=== PATIENT | female | born 1930 | race Caucasian/White ===

== ENCOUNTER 2016-07-30 08:00 | Outpatient (CLI) | payer MEDICARE, OTHER | END 2016-07-30 08:01 | disposition home or self-care (01) | DX: I10 Essential (primary) hypertension (principal); E78.5 Hyperlipidemia, unspecified ==

== ENCOUNTER 2017-04-12 08:30 | Outpatient (CLI) | payer MEDICARE, OTHER ==
[2017-04-12] MEDS ORDERED: IOPAMIDOL-300 50 ML VIAL ONE (11:20)
[2017-04-12] MEDS ORDERED: IOPAMIDOL-300 100 ML VIAL ONE (11:20)
--- NOTE | 2017-04-12 14:25 | Nuclear Medicine Report ---
EXAM: GASTRIC EMPTYING STUDY EXAM DATE: 04/12/2017 09:11 AM. CLINICAL HISTORY: GENERALIZED ABDOMINAL PAIN. COMPARISON: None. TECHNIQUE: A standard meal was radiolabeled with 1.0 mCi Tc-99m sulfur colloid according to protocol. Following the p.o. administration of this meal, the patient underwent multiple static images over th e abdomen from the anterior and posterior projections, at approximately 0 and 1 hours following the ingestion of the meal. Region of interest analysis was employed, and percent emptied/percent remainin g of the meal was calculated using both the geometric mean and decay corrections. FINDINGS: Calculations demonstrate: TIME (hours) Percent remaining. Normal values for percent remaining. 1 hour: 5.6% (30-90%) 2 hours: N/A (0-60%) 4 hours: N/A (0-10%) IMPRESSION: 1. Findings suggest abnormally rapid gastric emptying. [facility] Referring Provider Line: [phone] SITE ID: [id number]
== END 2017-04-12 08:31 | disposition home or self-care (01) ==
LOC: DI 08:30
PROVIDERS: ATTEND Internal Medicine Gastroenterology
DX: R10.84 Generalized abdominal pain (principal)
CPT/HCPCS: 78265; A9541

== ENCOUNTER 2017-04-15 08:17 | Outpatient (CLI) | payer MEDICARE, OTHER ==
[2017-04-15] MEDS ORDERED: BARIUM SULFATE 135 ML BOTTLE PO ONE (12:04)
[2017-04-15] MEDS ORDERED: BARIUM SULFATE 176 GM BOTTLE PO ONE (12:04)
[2017-04-15] MEDS ORDERED: SIMETHICONE/SOD BICARB/CIT AC 1 EACH PACKET PO ONE (12:04)
--- NOTE | 2017-04-16 09:24 | Ultrasound Report ---
COMPLETE ABDOMINAL ULTRASOUND: 04/15/2017 CLINICAL INDICATION: Abdominal pain. TECHNIQUE: Real-time scanning was performed with risk control field representative static images obtained. FINDINGS: The liver measures 13.8 cm. There is focal fatty infiltration adjacent to the falciform ligament. No suspicious hepatic lesion or intrahepatic biliary dilation is seen. The common bile duct measures 4 mm. The gallbladder is normal. The pancreas is unremarkable. The kidneys are normal, with the right measuring 8.9 cm and the left measuring 10.4 cm. The spleen measures 7.5 cm, and demonstrates old calcified granulomas. The abdominal aorta is normal in caliber. The inferior vena cava is unremarkable. No free fluid is present. IMPRESSION: FOCAL FATTY INFILTRATION ADJACENT TO THE FALCIFORM LIGAMENT. MTDD
--- NOTE | 2017-04-16 10:46 | XRAY Report ---
UPPER GASTROINTESTINAL WITH SMALL BOWEL FOLLOWTHROUGH DATE: 04/15/2017. INDICATION: Generalized abdominal pain. Single and double contrast upper GI was performed, followed by small bowel followthrough. Initial automatic gluing machine operator view of the abdomen demonstrates a normal bowel gas pattern. The distal esophagus is normal in caliber. No hiatal hernia is identified. The stomach demonstrates a normal fold pattern. No gastric ulceration, mass lesion, or stricturing is identified. The duodenal cap distends normally. The duodenal C -loop is unremarkable. Contrast passes freely through jejunal and ileal loops with contrast seen in the colon at 30 minutes. No abnormal dilatation or separation of small bowel loops is seen. No fixed intraluminal filling defect is identified. The terminal ileum is unremarkable. IMPRESSION: Normal upper gastrointestinal with small bowel followthrough. FLUOROSCOPY TIME: 4 minutes 2 seconds; [address] [facility]
== END 2017-04-15 08:18 | disposition home or self-care (01) ==
LOC: DI 08:17
PROVIDERS: ATTEND Internal Medicine Gastroenterology
DX: R10.84 Generalized abdominal pain (principal); K76.0 Fatty (change of) liver, not elsewhere classified
CPT/HCPCS: 74249; 76700; A9270

== ENCOUNTER 2017-04-23 09:56 | Outpatient (CLI) | payer MEDICARE, OTHER ==
[~2017-04-23 09:56] MED LIST: IOPAMIDOL-300 100 ML VIAL ONE; IOPAMIDOL-300 50 ML VIAL ONE
[2017-04-23] MEDS ORDERED: IOPAMIDOL-300 50 ML VIAL ONE (10:38)
[2017-04-23] MEDS ORDERED: IOPAMIDOL-300 100 ML VIAL ONE (10:38)
[2017-04-23] MEDS ORDERED: IOPAMIDOL-300 50 ML VIAL PO ONE (13:10)
[2017-04-23] MEDS ORDERED: IOPAMIDOL-300 100 ML VIAL IVP ONE (13:10)
--- NOTE | 2017-04-23 16:10 | CT Report ---
EXAM: CT ABDOMEN AND PELVIS EXAM DATE: 04/23/2017 12:14 PM. CLINICAL HISTORY: Abdominal pain. COMPARISONS: Abdomen pelvis CT 07/06/2016 (axial images only). TECHNIQUE: Routine helical CT imaging was performed through the abdomen and pelvis. IV contrast: Isov ue 300 100 mL. Enteric contrast: Yes. Reconstructions: Coronal and sagittal. In accordance with CT protocol optimization, one or more of the following dose reduction techniques w ere utilized for this exam: automated exposure control, adjustment of mA and/or KV based on patient s ize, or use of iterative reconstructive technique. FINDINGS: Lung Bases: Unremarkable. Liver: No masses. Focal fatty infiltration adjacent to the falciform ligament is less prominent. Gallbladder/Bile Ducts: Unremarkable. Spleen: Normal. Pancreas: Normal. Adrenal Glands: Normal. Kidneys: Normal. No masses or hydronephrosis. Peritoneal Cavity/Bowel: Substantial colonic diverticulosis appears progressed but there is no CT len dence of diverticulitis. No free fluid, free air or adenopathy. No masses or acute inflammatory proce ss. The appendix is not clearly identified but there is no evidence of appendicitis. Pelvic Organs: No definite bladder stone or mass. The uterus is either absent or very atrophic. Vasculature: Extensive atherosclerotic calcifications, without tyson aneurysm. Bones: Substantial levoconvexity rotoscoliosis centered at the L1-L2 level appears mildly increased. There is degenerative disease of the spine. Grade 1 anterolisthesis at L4-L5 appears to be due to deg enerative facet disease. (No prior lateral images for comparison). Other: None. IMPRESSION: 1. No definite acute abnormality of the abdomen or pelvis. 2. Substantial colonic diverticulosis without evidence of diverticulitis. 3. Additional chronic findings, as above. [facility] Referring Provider Line: [phone] SITE ID: [id number]
== END 2017-04-23 09:57 | disposition home or self-care (01) ==
LOC: DI 09:56
PROVIDERS: ATTEND Internal Medicine Gastroenterology
DX: R10.84 Generalized abdominal pain (principal); K57.30 Diverticulosis of large intestine without perforation or abscess without bleeding
CPT/HCPCS: 74177; Q9967

== ENCOUNTER 2017-06-11 16:07 | Outpatient (CLI) | payer MEDICARE, OTHER | END 2017-06-11 16:08 | disposition critical access hospital (66) | LOC: EMS 16:07 | PROVIDERS: ATTEND Surgery | DX: R42 Dizziness and giddiness (principal); R51 Headache | CPT/HCPCS: A0425; A0429 ==

== ENCOUNTER 2017-06-11 16:29 | Observation (INO) | payer MEDICARE, OTHER ==
--- NOTE | 2017-06-11 17:39 | ED Physician Documentation ---
PD HPI FOCAL NEURO - Stated complaint Stated Complaint: VERTIGO - Chief complaint Chief Complaint: Neuro - History obtained from History obtained from: Patient, Family - History of Present Illness Timing - onset: How many minutes ago (50) Timing - duration: Minutes (50) Timing - details: Abrupt onset (She was standing in line at a store and noted onset of left posterior neck pain followed with acute vertigo, with nausea and vomited. Vertigo worse with head movement, but persisted even without movement. It was not precipitated by bending, turning, injury. No prior similar.), Now resolved (improving after about 30 minutes, and was about gone by time of ED arrival, slight vertigo only. No visual change. No trouble talking.) Severity of deficit: Moderate (significant enough to feel off balance.) Weakness: No: Face, Arm, Leg Numbness: No: Face, Arm, Leg Review of Systems Constitutional: denies: Fever, Chills, Myalgias Ears: denies: Loss of hearing, Ear pain, Tinnitus/ringing Nose: denies: Rhinorrhea / runny nose, Congestion Throat: denies: Sore throat Cardiac: denies: Chest pain / pressure, Palpitations Respiratory: denies: Dyspnea, Cough GI: denies: Abdominal Pain, Nausea, Vomiting, Diarrhea : denies: Dysuria, Frequency Skin: denies: Rash, Lesions Neurologic: denies: Focal weakness, Numbness, Difficulty speaking, Near syncope PD PAST MEDICAL HISTORY - Past Medical History Past Medical History: Yes Cardiovascular: Hypertension, High cholesterol, Peripheral Vascular Disease, Pulmonary embolism Respiratory: None Neuro: TIA, Headache/migraine, Other (right carotid CEA. 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 - Present Medications Home Medications: Ambulatory Orders Medication Instructions Recorded Confirmed Latanoprost 0.005% Ophth Drops 1 drops OPTH QPM 06/30/13 01/19/16 [Xalatan] oxyCODONE [Roxicodone] 5 mg PO DAILY PRN 06/30/13 01/20/16 Dorzolamide 2% Ophth Drops 2 drops LEFTEYE BID 11/29/15 01/19/16 [Trusopt 2% Ophth Drops] Omeprazole [PriLOSEC] 20 mg ORAL BID 11/29/15 01/20/16 amLODIPine [Norvasc] 5 mg ORAL DAILY 11/29/15 01/19/16 Enoxaparin [Lovenox] 60 mg SQ DAILY 01/19/16 01/19/16 - Allergies Allergies/Adverse Reactions: Allergies Allergy/AdvReac Type Severity Reaction Status Date / Time codeine AdvReac Mild Unknown Verified 07/01/13 07:45 - Social History Does the pt smoke?: No Smoking Status: Never smoker Does the pt have substance abuse?: No PD ED PE NORMAL - Vitals Vital signs reviewed: Yes - General General: Alert and oriented X 3, No acute distress, Well developed/nourished - HEENT HEENT: Atraumatic, PERRL (without nystagmus), EOMI, Ears normal, Pharynx benign - Neck Neck: Supple, no meningeal sign, No adenopathy, No JVD, No bruit - Cardiac Cardiac: RRR, No murmur - Respiratory Respiratory: Clear bilaterally - Abdomen Abdomen: Soft, Non tender - Female Female : Deferred - Rectal Rectal: Deferred - Back Back: No CVA TTP - Derm Derm: Normal color, Warm and dry - Neuro Neuro: Alert and oriented X 3, contact lens blocker and cutter 2-12 intact, No motor deficit, No sensory deficit, Normal speech Eye Opening: Spontaneous Motor: Obeys Commands Verbal: Oriented GCS Score: 15 - Psych Psych: Normal mood, Normal affect NIHSS - Level of Consciousness Level of consciousness: (0) Alert, Keenly responsive LOC Questions: (0) Answers both Q's correct LOC Commands: (0) Performs both correctly - Gaze Best Gaze: (0) Normal - Visual Visual: (0) No loss - Facial Palsy Facial Palsy: (0) Normal, symmetrical movement - Motor Arms (both separate) Motor Arm (right): (0) No drift Motor Arm (left): (0) No drift - Motor Legs (both separate) Motor Leg (right): (0) No drift Motor Leg (left): (0) No drift - Limb Ataxia Limb Ataxia: (0) Absent - Sensory Sensory: (0) Normal - Best Language Best Language: (0) No aphasia - Dysarthria Dysarthria: (0) Normal - Extinction and Inattention (formally neg Extinction and inattention: (0) No abnormality - Total Score/Results Total Score/Result: 0 Results - Vitals Vitals: Vital Signs - 24 hr 06/11/17 06/11/17 06/11/17 16:32 16:40 18:56 Temperature 36.1 C L Heart Rate 66 80 Respiratory 16 16 Rate Blood Pressure 201/60 H 188/73 H O2 Saturation 100 98 06/11/17 06/11/17 06/11/17 19:32 20:33 21:23 Temperature 36.0 C L Heart Rate 79 86 72 Respiratory 15 20 16 Rate Blood Pressure 188/73 H 166/70 H 155/63 H O2 Saturation 100 100 99 06/11/17 22:42 Temperature Heart Rate 97 Respiratory 24 Rate Blood Pressure 143/110 H O2 Saturation 100 Oxygen O2 Source Room air - EKG (time done) 23:03 Rate: Rate (enter#) (66) Rhythm: NSR [place]: Normal Intervals: Normal MA QRS: Poor R wave progression Ischemia: Normal ST segments. No: ST elevation c/w ischemia, ST depression, T wave inversion Compare to prior EKG: Old EKG unavailable - Labs Labs: Laboratory Tests 06/11/17 06/11/17 06/11/17 18:33 18:33 18:33 WBC 6.6 RBC 3.99 L Hgb 12.9 Hct 39.1 MCV 98.1 MCH 32.5 H MCHC 33.1 RDW 13.4 Plt Count 273 MPV 7.4 L Neut # 4.4 Lymph # 1.7 Hitchcock # 0.4 Eos # 0.1 Baso # 0.0 Absolute Nucleated RBC 0.00 Nucleated RBC % 0.0 ESR 17 PT INR Sodium 133 L Potassium 3.3 L Chloride 93 L Carbon Dioxide 25 Anion Gap 15.0 H BUN 15 Creatinine 0.8 Estimated GFR (MDRD) 68 L Glucose 126 H Calcium 9.5 Magnesium 1.8 Total Bilirubin 0.4 AST 26 ALT 19 Alkaline Phosphatase 64 Total Protein 8.2 Albumin 4.7 Globulin 3.5 Albumin/Globulin Ratio 1.3 Lipase 38 06/11/17 18:33 WBC RBC Hgb Hct MCV MCH MCHC RDW Plt Count MPV Neut # Lymph # [place]cock # Eos # Baso # Absolute Nucleated RBC Nucleated RBC % ESR PT 14.7 H INR 1.3 H Sodium Potassium Chloride Carbon Dioxide Anion Gap BUN Creatinine Estimated GFR (MDRD) Glucose Calcium Magnesium Total Bilirubin AST ALT Alkaline Phosphatase Total Protein Albumin Globulin Albumin/Globulin Ratio Lipase - Rads (name of study) neck and brain Angio Radiology: Prelim report reviewed (left cerebellar artery with 50-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 Left carotid with 33% stenosis. Right carotid with surgical changes and good flow. ) PD MEDICAL DECISION MAKING - ED course Complexity details: reviewed results, re-evaluated patient (no symptoms on recheck. Feeling okay. ), considered differential (concern for posterior TIA, vertebral artery dissection, posterior bleed, cerebellar infarct. Does not seem like peripheral vertigo. ), d/w patient, d/w production consultant (Stroke Neurology at [facility], who felt symptoms concerning for central vertigo and c/w posterior TIA. Suggests overnight telemetry, ECHO, MRI. 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
[2017-06-11] MEDS ORDERED: SODIUM CHLORIDE 0.9% 1,000 ML IV ONE (18:08)
[2017-06-11 18:42] LABS: BASOPHILS % (AUTO) 0.7 %; EOSINOPHILS # (AUTO) 0.1 10^3/uL (0.0-0.7); EOSINOPHILS % (AUTO) 1.7 %; HGB - HEMOGLOBIN 12.9 g/dL (12.0-16.0); LYMPHOCYTES # (AUTO) 1.7 10^3/uL (1.5-3.5); LYMPHOCYTES % (AUTO) 25.4 %; MEAN CORPUSCULAR HEMOGLOBIN 32.5 pg (27.0-31.0); MEAN CORPUSCULAR HGB CONC 33.1 g/dL (32.0-36.0); MEAN CORPUSCULAR VOLUME 98.1 fL (81.0-99.0); MEAN PLATELET VOLUME 7.4 fL (7.9-10.8); MONOCYTES # (AUTO) 0.4 10^3/uL (0.0-1.0); MONOCYTES % (AUTO) 5.6 %; NEUTROPHILS # (AUTO) 4.4 10^3/uL (1.5-6.6); NEUTROPHILS % (AUTO) 66.6 %; PLT - PLATELET COUNT 273 10^3/uL (130-450); RED BLOOD COUNT 3.99 10^6/uL (4.20-5.40); RED CELL DISTRIBUTION WIDTH 13.4 % (12.0-15.0); WHITE BLOOD COUNT 6.6 x10^3/uL (4.8-10.8)
[2017-06-11] MEDS ORDERED: HYDROmorphone 1 MG/ML SYRINGE IVP STA (18:44)
[2017-06-11 19:05] LABS: ALBUMIN 4.7 g/dL (3.2-5.5); ALBUMIN/GLOBULIN RATIO 1.3 (1.0-2.2); BILIRUBIN,TOTAL 0.4 mg/dL (0.2-1.0); CALCIUM 9.5 mg/dL (8.5-10.3); CREATININE 0.8 mg/dL (0.4-1.0); MAGNESIUM 1.8 mg/dL (1.7-2.8); TOTAL PROTEIN 8.2 g/dL (6.7-8.2)
[2017-06-11] MEDS ORDERED: IOPAMIDOL-300 100 ML VIAL ONE (20:02)
[2017-06-11] MEDS ORDERED: IOPAMIDOL-300 100 ML VIAL IVP ONE (20:34)
--- NOTE | 2017-06-11 21:29 | CT Preliminary Report ---
Exam: CT NECK ANGIO Impression: 1. There is no acute intracranial abnormality. There is mild to moderate degree of chronic small vess el ischemia and mild degree of generalized volume loss. 2. Normal postcontrast CT scan of the head. 3. There are surgical changes of the right carotid endarterectomy. 4. There is calcific plaquing of the left carotid bulb producing a 33% stenosis using NASCET criteria . 5. There is a small focus of suggested narrowing of the left posterior inferior cerebellar artery carline suring approximately 50-70%. 6. There is no evidence of cerebral aneurysm. There is no hemodynamically significant stenosis within the head. SITE ID: [id number]
--- NOTE | 2017-06-11 21:39 | CT Report ---
EXAMINATION: CT ANGIOGRAM OF THE HEAD AND NECK HISTORY: Left posterior neck pain and vertigo. Sudden onset of neck pain and dizziness. COMPARISON: CT scan of the head without contrast 05/12/2015 and MRI of the brain without and with con trast 03/30/2015. TECHNIQUE: CTA Head And Neck: Using a multidetector scanner, high-resolution axial images were acquir ed from the thoracic inlet vertex through the skull base during rapid infusion of 80mL of Isovue-300 intravenous contrast. 3-D and multiplanar images were reconstructed. Percent stenoses of the distal c ommon carotid arteries, carotid bulbs, and extracranial internal carotid arteries was determined usin g NASCET criteria. The remainder of the stenoses were calculated by comparing to the normal-appearing downstream vessel. Pre and Post Contrast Head CT: 5 mm contiguous axial sections obtained from the foramen magnum to edna tessy, was performed before and after the CT angiogram. In accordance with CT protocol optimization, one or more of the following dose reduction techniques w ere utilized for this exam: automated exposure control, adjustment of the mA and/or KV based on patie nt size, or use of iterative reconstructive technique. FINDINGS: CT scan of the head without contrast: There is a mucous retention cyst in the base of the right maxillary sinus. The remainder of the level is normal. The bilateral mastoid air cells are normally aerated. There is calcific plaquing of the cavernous and supraclinoid intracranial internal carotid arteries. There is no acute fracture of the calvaria. There is no acute collection of blood or blood products, or mass. There is no midline shift. The axial images demonstrate confluent areas of hypodensity within the subcortical, deep, and periven tricular white matter. This is consistent with a mild to moderate degree of chronic small vessel isch emia. There is enlargement of the lateral ventricles and the third ventricle but not out of proportio n to the enlargement of the cerebral sulci. This is consistent with a mild degree of generalized volu me loss. CT scan of the head with contrast: There is normal enhancement within the deep venous sinuses. There is normal enhancement within the brain parenchyma. CT angiogram of the neck: There is respiratory motion superimposed on the images of the lung apices. There is dense calcific plaquing of the aortic arch. There are multilevel mild to moderate degenerati ve changes of the cervical spine. There is beam-hardening artifact from the patient's dental amalgam and or dental hardware obscuring p ortions of the oropharynx, nasopharynx, oral cavity, christian science practitioner and parotid spaces, tongue and tongue base. The bilateral mastoid air cells are normally aerated. There is mild mucosal thickening of the base of the bilateral maxillary sinuses. There are surgical changes of a right lens replacement. The christian science practitioner spaces exhibit symmetric densi ties The opening of the eustachian tubes are normally aerated. The torus tubarius are symmetric. The fossa of Rosenmuller is collapsed bilaterally. The bilateral parapharyngeal spaces exhibit normal fat dens ities. There is no significant adenopathy in the level IA samia chain. There is no significant adeno prisca within the bilateral level IB samia chains. The bilateral submandibular glands exhibit symmetri c size and enhancement. The vallecula are symmetric. The free and fixed margins of the epiglottis are normal in appearance. T he preepiglottic space and paraglottic spaces exhibit normal fat densities. The aryepiglottic folds a nd pyriform sinuses are symmetric. The false and true cords are normal in appearance. The arytenoid c artilage, cricoid cartilage, and the thyroid cartilages are normal in appearance. The subglottic spac e is normal. The bilateral thyroid lobes enhance symmetrically. The cervical and thoracic esophagus within the provided field of view is unremarkable. There are surg ical clips demonstrated within the right side of the neck. This may be from previous carotid endarter ectomy. Recommend correlation with history. There is increased attenuation surrounding the right mccann tid space at the level of the distal right common carotid artery and carotid bulb likely reflecting p ostsurgical changes. Carotidynia could produce a similar appearance. Recommend correlation with histo ry. The right common carotid artery, carotid bulb, and extracranial right internal carotid artery are smo oth and nonstenotic. There is calcific plaquing of the left carotid bulb producing a 33% stenosis using NASCET criteria. T he extracranial left internal carotid artery is smooth and nonstenotic. There is a small focus of calcific plaquing of the origin of the right vertebral artery producing a l ess than 25% stenosis. The left vertebral artery V1, V2, and V3 segments are smooth and nonstenotic. CT angiogram of the head: The right vertebral artery intradural segment is smooth and nonstenotic. The left vertebral artery in tradural segment is smooth and nonstenotic. There is a small focus of suggested narrowing of the left posterior inferior cerebellar artery measur ing approximately 50-70%. The right anterior inferior cerebellar artery is somewhat poorly demonstrated which is secondary to i ts small size. Therefore, its evaluation is limited. The basilar artery is without flow-limiting stenosis. The right superior cerebellar artery is is without flow-limiting stenosis. The left superior cerebellar artery is without flow-limiting stenosis. There is narrowing of the distal right P2 segment of the right posterior cerebral artery measuring ap proximately 25%. There is mild narrowing of the distal left P1 segment of the left posterior cerebral artery measuring approximately 25%. There is calcific plaquing of the right cavernous and supraclinoid segments of the intracranial inter nal carotid arteries bilaterally without flow-limiting stenosis. The right M1 and proximal M2 segments of the right middle cerebral artery are smooth and nonstenotic. The left M1 and proximal M2 segments of the left middle cerebral artery are smooth and nonstenotic. The right A1 segment is smooth and nonstenotic. The left A1 segment is smooth and nonstenotic. The ri ght A2 segment of the right anterior cerebral artery is smooth and nonstenotic. The left A2 segment o f the left anterior cerebral artery is smooth and nonstenotic. There is normal enhancement within the deep venous sinuses. IMPRESSION: 1. There is no acute intracranial abnormality. There is mild to moderate degree of chronic small vess el ischemia and mild degree of generalized volume loss. 2. Normal postcontrast CT scan of the head. 3. There are surgical changes of the right carotid endarterectomy. 4. There is calcific plaquing of the left carotid bulb producing a 33% stenosis using NASCET criteria . 5. There is a small focus of suggested narrowing of the left posterior inferior cerebellar artery carline suring approximately 50-70%. 6. There is no evidence of cerebral aneurysm. There is no hemodynamically significant stenosis within the head. Referring Provider Line: [phone] SITE ID: [id number]
[2017-06-11] MEDS ORDERED: ASPIRIN CHEW 81 MG TABLET PO STA (22:36)
[2017-06-11] MEDS ORDERED: ACETAMINOPHEN 325 MG TABLET PO PRN (22:39)
[2017-06-11] MEDS ORDERED: SODIUM CHLORIDE FLUSH 0.9% 10 ML SYRINGE IVP PRN (22:39)
[2017-06-11] MEDS ORDERED: ONDANSETRON 4 MG/2 ML VIAL IVP PRN (22:39)
[2017-06-11 22:49] LABS: INR 1.3 (0.8-1.2); PT - PROTHROMBIN TIME 14.7 secs (9.9-12.6)
[2017-06-11] MEDS ORDERED: oxyCODONE 5 MG TABLET PO PRN (23:19)
[2017-06-12] MEDS: DORZOLAMIDE 2% OPHTH DROPS LEFTEYE SCH ×2 (00:41→08:38)
[2017-06-12] MEDS: amLODIPine 5 MG TABLET PO SCH ×2 (00:41→08:38)
--- NOTE | 2017-06-12 05:30 | HISTORY & PHYSICAL EXAMINATION ---
DATE OF SERVICE: 06/11/2017 Physician: Lori Calero MD DATE OF ADMISSION: 06/11/2017 CHIEF COMPLAINT: Neck pain and dizziness. HISTORY OF PRESENT ILLNESS: The patient is an 87-year-old, white female with past medical history of degenerative disk disease of the spine, mostly affecting the lower back with history of peripheral vascular disease, status post right carotid endarterectomy and with history of TIA as well. For peripheral vascular disease and history of frequent TIAs, the patient had remained on Coumadin. Notably, she had PE and DVT back in 2001, at which time she was on Coumadin, and she tells me that she remained on Coumadin because of her other medical problems. In any case, the patient is usually active and in good general health. She was at a QBE in the afternoon of June 11 with her [id number], at which time she suddenly experienced excruciating left-sided neck pain. The pain was unbearable. It made her nauseous and dizzy. She felt like she was almost passing out. Due to her discomfort and distress, ambulance was called and she was brought to the ER. Upon presentation to the ER, she had an unremarkable EKG, negative troponin, unremarkable laboratory workup showing minor abnormalities such as a potassium of 3.3. Notably, although the patient is on Coumadin, her INR was 1.3. The patient underwent head and neck imaging, CT angiography of head and neck, which showed left-sided carotid stenosis, which was, however, not hemodynamically significant. As far as the CT scan described, there was no acute intracranial abnormality. Chronic small vessel ischemia and generalized volume loss was seen. There was a narrowing at the left posterior inferior cerebellar artery, about 50% to 70%. During the ER stay, the patient's symptoms slightly improved, but she still complained of intense, left-sided neck pain when I examined her. She stated that she usually has musculoskeletal aches and pains, which usually affect her lower spine and lower extremities. The neck pain, per her assessment, seemed muscle-like pain. Besides the above symptoms, she reported urinary frequency, which has been getting worse recently. Regarding the vital signs during the ER stay, the patient was hypertensive with blood pressure of 190/65. Given the intracranial vascular stenoses, the case was discussed with the covering [facility] neurologist, and no intervention was recommended. In particular, it was recommended that we admit this patient under observation and complete basic TIA workup. PAST MEDICAL HISTORY 1. Peripheral vascular disease, status post right carotid endarterectomy in 2001. 2. History of PE and DVT in 2001. 3. Degenerative disk disease of the lower spine/chronic back pain. 4. History of TIAs. 5. Hypertension. 6. Dyslipidemia. 7. Glaucoma. 8. Peptic ulcer disease/pyloric stenosis, history of multiple dilatation procedures and upper endoscopies. 9. Therapeutic anticoagulation, on Coumadin for a history of vascular disease plus TIA plus history of PE and DVT. PRIMARY CARE PHYSICIAN: Oneil Rollins MD OUTPATIENT MEDICATIONS Updated medication list could not be obtained, but the patient told me that she only takes: 1. Oxycodone. 2. Amlodipine. 3. Coumadin. 4. In addition, she takes vitamin supplements including vitamin D and cranberry. ALLERGIES: CODEINE. FAMILY HISTORY: Reviewed, noncontributory. SOCIAL HISTORY: The patient is physically active. She is a nonsmoker and nondrinker. REVIEW OF SYSTEMS: Please see pertinent positives listed above at history of present illness. There was no additional complaint on the 12-point review. PHYSICAL EXAMINATION VITAL SIGNS: Temperature 36.5 Celsius, heart rate between 70 and 90; blood pressure 150/50, earlier in the ER 190/65, respiratory rate 18, oxygen saturation 100% on room air. GENERAL: The patient is a well-developed, elderly female, not in acute distress. MUSCULOSKELETAL: Thin, atraumatic. There was no obvious musculoskeletal abnormality at the neck. There was full range of motion. No signs of radiculopathy, moving the left and the right arms. NEUROLOGIC: Alert, oriented, nonfocal. Intact speech and cognition, symmetric face. No focal lateralizing sign. PSYCHIATRIC: Cooperative. CARDIOVASCULAR: S1, S2. Regular. No pathologic murmur. RESPIRATORY: Clear to auscultation without wheezes or crackles. ABDOMEN: Soft, benign, nontender. Normal bowel tones. LYMPHATIC: No lymphedema. ASSESSMENT AND PLAN: The patient is an 87-year-old female who is getting admitted with intense left-sided neck pain and symptoms associated with this, which include dizziness , nausea and feeling presyncopal. Her presentation started as an intense musculoskeletal like pain. She ruled out for atypical cardiac presentation, had negative troponin and unremarkable EKG. Still the most likely possibility is a strained muscle. In addition, she might have a TIA-like presentation, especially because her INR is subtherapeutic. PLAN AND ORDERS 1. Patient will be admitted under observation. She will be monitored on telemetry. Will undergo TIA workup which includes an echocardiogram and MRI of the brain. In addition, we are going to check urinalysis to make sure that the patient does not have urinary tract infection. Notably, she did report increased urinary frequency. 2. For uncontrolled hypertension we will continue amlodipine. Hypertension could be situational, as the patient was with intense neck pain when she presented. 3. Regarding Coumadin anticoagulation, I ordered bridging with Lovenox until INR becomes therapeutic and we will continue Coumadin per INR. 4. Regarding slightly low potassium level, I will order replacement. 5. We will continue eyedrops for glaucoma and oxycodone for chronic back pain. 6. Code status is DO NOT RESUSCITATE, which was discussed with the patient. Disposition: The patient is expected to get discharged within 24-48 hrs, admitted under observation. Time spent in the care of this patient was 55 minutes. cc: Oneil Rollins TD: 06/12/2017 05:29 CRYSTAL
[2017-06-12] MEDS ORDERED: SODIUM CHLORIDE FLUSH 0.9% 10 ML SYRINGE IVP SCH (06:00)
[2017-06-12 06:32] LABS: INR 1.3 (0.8-1.2); PT - PROTHROMBIN TIME 14.3 secs (9.9-12.6)
[2017-06-12] MEDS ORDERED: PANTOPRAZOLE 40 MG TABLET PO SCH (07:00)
[2017-06-12] MEDS ORDERED: POTASSIUM CHLORIDE 20 MEQ TABLET PO ONE (07:15)
[2017-06-12 07:51] VITALS: BP 150/59
[2017-06-12] MEDS ORDERED: POLYETHYLENE GLYCOL 3350 17 GM PACKET PO SCH (09:00)
[2017-06-12] MEDS ORDERED: NON FORMULARY MED (Omeprazole [Prilosec] 20 MG) ORAL SCH (09:00)
[2017-06-12] MEDS ORDERED: ENOXAPARIN 40 MG/0.4 ML SYRINGE SUBQ SCH (09:00)
[2017-06-12] MEDS ORDERED: ENOXAPARIN 30 MG/0.3 ML SYRINGE SUBQ SCH (09:00)
[2017-06-12 09:04] LABS: BASOPHILS % (AUTO) 0.6 %; EOSINOPHILS # (AUTO) 0.1 10^3/uL (0.0-0.7); EOSINOPHILS % (AUTO) 2.4 %; HGB - HEMOGLOBIN 11.7 g/dL (12.0-16.0); LYMPHOCYTES # (AUTO) 2.2 10^3/uL (1.5-3.5); LYMPHOCYTES % (AUTO) 39.2 %; MEAN CORPUSCULAR HEMOGLOBIN 33.2 pg (27.0-31.0); MEAN CORPUSCULAR VOLUME 97.8 fL (81.0-99.0); MEAN PLATELET VOLUME 7.9 fL (7.9-10.8); MONOCYTES # (AUTO) 0.5 10^3/uL (0.0-1.0); MONOCYTES % (AUTO) 9.3 %; NEUTROPHILS # (AUTO) 2.8 10^3/uL (1.5-6.6); NEUTROPHILS % (AUTO) 48.5 %; PLT - PLATELET COUNT 220 10^3/uL (130-450); RED BLOOD COUNT 3.53 10^6/uL (4.20-5.40); RED CELL DISTRIBUTION WIDTH 13.3 % (12.0-15.0); WHITE BLOOD COUNT 5.7 x10^3/uL (4.8-10.8)
[2017-06-12 09:17] LABS: ALBUMIN 3.4 g/dL (3.2-5.5); ALBUMIN/GLOBULIN RATIO 1.2 (1.0-2.2); BILIRUBIN,TOTAL 0.3 mg/dL (0.2-1.0); CALCIUM 8.9 mg/dL (8.5-10.3); CREATININE 0.7 mg/dL (0.4-1.0); MAGNESIUM 1.7 mg/dL (1.7-2.8); TOTAL PROTEIN 6.3 g/dL (6.7-8.2)
[2017-06-12 11:18] LABS: BILIRUBIN,URINE NEGATIVE (NEGATIVE); GLUCOSE, URINE (UA) NEGATIVE (NEGATIVE); KETONES,URINE (UA) NEGATIVE (NEGATIVE); LEUKOCYTE ESTERASE, URINE NEGATIVE (NEGATIVE); NITRITE,URINE NEGATIVE (NEGATIVE); OCCULT BLOOD,URINE NEGATIVE (NEGATIVE); PH,URINE 6.5 PH (5.0-7.5); PROTEIN,URINE NEGATIVE (NEGATIVE); UROBILINOGEN,URINE 0.2 (NORMAL) E.U./dL (NORMAL)
[2017-06-12 11:30] LABS: CLARITY,URINE CLEAR (CLEAR)
[2017-06-12 11:51] LABS: BACTERIA,URINE Rare /HPF (None Seen); RBC,URINE 0-5 /HPF (0-5); SQUAMOUS EPITHELIAL CELL,UR NONE SEEN (<= Few)
--- NOTE | 2017-06-12 11:51 | MRI Preliminary Report ---
Exam: MRI BRAIN W/O IMPRESSION: 1. No definite MRI evidence for acute intracranial abnormality, see discussion in the final report. 2. 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 3. 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 [facility] SITE ID: [id number]
--- NOTE | 2017-06-12 12:13 | MRI Report ---
EXAM: MRI BRAIN WITHOUT CONTRAST EXAM DATE: 06/12/2017 11:17 AM. CLINICAL HISTORY: TIA. Recent history neck pain and vertigo with dizziness. COMPARISON: 04/01/2015. TECHNIQUE: Multiplanar, multisequence T1-weighted and fluid-sensitive MR sequences of the brain were performed. Sequences optimized for routine evaluation. Other: None. IV Contrast: None. FINDINGS: There is a 1 cm in diameter peripherally indistinct midline region of mild diffusion hyperintensity a t the junction of the ward and midbrain. Minimal hazy T2 hyperintensity at this level is suggested, s imilar findings were present previously. No restricted diffusion on the ADC map. This may represent i maging artifact or T2 shine-through from changes attributable to mild brainstem chronic microangiopat hy. No other evidence for abnormal acute diffusion hyperintensity to suggest acute or recent ischemic infarct. There is a small new but chronic infarct of the left cerebellar hemisphere that was not seen previous ly that can be seen on the current exam, image 7 of series 601. Moderately prominent multifocal patchy and confluent cerebral white matter disease, T2 hyperintense s ignal changes are similar to findings on the prior exam, especially prominent and confluent around th e ventricles, these nonspecific findings which appear essentially stable are likely attributable to a ging and chronic small vessel ischemic white matter disease. Similar pattern of moderately prominent diffuse atrophy. Mild ventriculomegaly is stable, more likely from atrophy than hydrocephalus. No mass effect, midline shift or abnormal subdural fluid collection. No developing focal pathologic appearing marrow signal changes in the skull or clivus. Symmetric cheri sly unremarkable appearing orbits. No space-occupying mass region of the pituitary fossa. Mild nonspecific paranasal sinus mucosal thickening without air-fluid level. IMPRESSION: 1. No definite MRI evidence for acute intracranial abnormality, see discussion above. 2. 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 3. 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 [facility] Referring Provider Line: [phone] SITE ID: [id number]
--- NOTE | 2017-06-12 13:40 | Discharge Plan ---
Discharge Plan Disposition: 01 Home, Self Care Condition: Stable Diet: Regular Activity Restrictions: Activity as Tolerated Shower Restrictions: No Weight Bearing: Full Weight Instruction Topics: TIA, Coumadin Additional Instructions or Follow Up instructions: May follow up PCP in 1-3 days. Pt's PT/INR is 14.3/1.3 today. Pt is prescribed additional 5 mg Coumadin, total 10 mg today. No Smoking: If you smoke, Please STOP! Call for help. Follow-up with: Oneil Rollins MD [Primary Care Provider] -
--- NOTE | 2017-06-12 13:52 | DISCHARGE SUMMARY ---
Discharge Summary Discharge Date: 06/12/17 Discharging Provider: FELIPE Primary Care Provider: Oneil Pierce Condition at Discharge: Stable Discharge Disposition: 01 Home, Self Care Discharge Facility Name: home - DIAGNOSES Admission Diagnoses: 1, left side neck pain, strain muscle, R/O TIA 2, pre-syncopal 3, degenerative disk 4, PVD 5, Hx of TIA 6, Hx of DVT Discharge Diagnoses with Status of Each Condition: 1, left side neck pain, strain muscle, R/O TIA pt present suddenly left side neck pain, without other focal neurological deficit. MRI of brain without acute finding, left neck Carotid stenosis 50-70% is not recommended to have procedure by surgeon php consultant. 2, pre-syncopal symptoms is resolved. ECHO is unremarkable 3, degenerative disk stable, chronic, continue pain control and management by PCP 4, PVD stable 5, Hx of TIA continue on Coumadin 6, Hx of DVT continue Coumadin - HPI History of Present Illness: please review Dr. Calero's HPI on 06/12/17 - HOSPITAL COURSE Hospital Course: pt was admitted for suddenly left side of neck pain, pre-syncopal, to r/o TIA. Pt is admitted in observation unit. CTA of neck and brain reveals 50-70% left carotid stenosis, no procedure was recommended by the surgeon. MRI of brain is unremarkable. ECHO is unremarkable as well. Pt's neck pain is resolved. There is no neurological focal deficit from this episode. There is no need for rehab. Pt has Coumadin at home medication list. Pt will continue to have medical management by her PCP. - ALLERGIES Allergies/Adverse Reactions: Allergies Allergy/AdvReac Type Severity Reaction Status Date / Time codeine AdvReac Mild Unknown Verified 07/01/13 07:45 - MEDICATIONS Home Medications: Ambulatory Orders Medication Instructions Recorded Confirmed Latanoprost 0.005% Ophth Drops 1 drops LEFTEYE QPM 06/30/13 06/12/17 [Xalatan Ophth Drops] oxyCODONE [Roxicodone] 2.5 - 5 mg PO TID 06/30/13 06/12/17 Dorzolamide 2% Ophth Drops 2 drops LEFTEYE BID 11/29/15 06/12/17 [Trusopt 2% Ophth Drops] Omeprazole [PriLOSEC] 20 mg ORAL BIDAC 11/29/15 06/12/17 amLODIPine [Norvasc] 5 mg ORAL DAILY 11/29/15 06/12/17 Simvastatin 10 mg PO QPM 06/12/17 06/12/17 Warfarin [Coumadin] 2.5 mg PO TUTHSA@0900 06/12/17 06/12/17 Warfarin [Coumadin] 5 mg PO SUMOWEFR@0900 06/12/17 06/12/17 - PHYSICAL EXAM AT DISCHARGE General Appearance: positive: No acute distress, Alert. negative: Lethargic Eyes Bilateral: positive: Normal inspection, PERRL, No lid inflammation, Conjunctivae nml ENT: positive: ENT inspection nml, Pharynx nml, No signs of dehydration. negative: Purulent nasal drainage, Pharyngeal erythema, Oral lesions, Dry mucous membranes Neck: positive: Nml inspection, Thyroid nml, No JVD, Trachea midline. negative : Thyromegaly, Lymphadenopathy (R), Lymphadenopathy (L), Stiff neck, Carotid bruit, Swelling/bruising, Tracheal deviation Cardiovascular: positive: Regular rate & rhythm, No murmur, No gallop. negative : Irregularly irregular, Extrasystoles, Tachycardia, Bradycardia, Systolic murmur, Diastolic murmur Peripheral Pulses: positive: 2+ Abdomen: positive: Non-tender, No organomegaly, Nml bowel sounds, No distention. negative: Tenderness, Guarding, Rebound Back: positive: Nml inspection. negative: CVA tenderness (R), CVA tenderness (L ) Skin: positive: Color nml, No rash, Warm, Dry. negative: Cyanosis, Diaphoresis , Pallor Extremities: positive: Non-tender, Full ROM, Nml appearance. negative: Calf tenderness, Joint swelling, Lashawn's sign/cords Neurologic/Psychiatric: positive: Oriented x3, Motor nml, Sensation nml, Mood/ affect nml. negative: Weakness, Sensory loss, Facial droop, Slurred/abnml speech, Depressed mood/affect - LABS Result Diagrams: 06/12/17 06:15 06/12/17 06:15 - FOLLOW UP Follow Up: Pt is advised to follow up PCP in three-four days. Pt's anticoagulation status is subtherapeutic. I Called pt's PCP but nobody picked up the phone. Pt is advised to discuss this issue with her PCP when she saw her PCP in 3-4 days. Add 5 mg Coumadin on today, pt total had 10 mg Coumadin today, then Resume home medication regimen. Pt has no focal neurological deficit from this episode. There is no need for rehab.
[2017-06-12] MEDS ORDERED: WARFARIN 5 MG TABLET PO SCH ×2 (14:00)
[2017-06-12] MEDS ORDERED: LATANOPROST 0.005% OPHTH DROPS EACHEYE SCH (21:00)
== END 2017-06-12 14:36 | disposition home or self-care (01) ==
LOC: EDUNIT# → ED 16:29 → OBS 22:39
PROVIDERS: ADMIT Internal Medicine; ATTEND Nurse Practitioner Gerontology
DX: M54.2 Cervicalgia (principal); R55 Syncope and collapse; I73.9 Peripheral vascular disease, unspecified; M51.36 Other intervertebral disc degeneration, lumbar region; I66.3 Occlusion and stenosis of cerebellar arteries; I65.22 Occlusion and stenosis of left carotid artery; G89.29 Other chronic pain; R35.0 Frequency of micturition; I10 Essential (primary) hypertension; E78.5 Hyperlipidemia, unspecified; H40.9 Unspecified glaucoma; K21.9 Gastro-esophageal reflux disease without esophagitis; Z86.711 Personal history of pulmonary embolism; Z86.73 Personal history of transient ischemic attack (TIA), and cerebral infarction without residual deficits; Z98.890 Other specified postprocedural states; Z79.01 Long term (current) use of anticoagulants; Z86.718 Personal history of other venous thrombosis and embolism; Z87.11 Personal history of peptic ulcer disease; Z79.891 Long term (current) use of opiate analgesic; Z66 Do not resuscitate
CPT/HCPCS: 36415; 70496; 70498; 70551; 80053; 81001; 83690; 83735; 84443; 84484; 85025; 85610; 85651; 93005; 93306; 96361; 96372; 96374; 99284; 99285; A9270; G0378; J1170; J1650; Q9967; 87086

== ENCOUNTER 2017-07-29 08:00 | Outpatient (CLI) | payer MEDICARE, OTHER ==
[2017-07-29 20:38] LABS: BILIRUBIN,URINE NEGATIVE (NEGATIVE); GLUCOSE, URINE (UA) NEGATIVE (NEGATIVE); KETONES,URINE (UA) NEGATIVE (NEGATIVE); LEUKOCYTE ESTERASE, URINE NEGATIVE (NEGATIVE); NITRITE,URINE NEGATIVE (NEGATIVE); OCCULT BLOOD,URINE NEGATIVE (NEGATIVE); PROTEIN,URINE NEGATIVE (NEGATIVE); UROBILINOGEN,URINE 0.2 (NORMAL) E.U./dL (NORMAL)
[2017-07-29 20:41] LABS: CLARITY,URINE CLEAR (CLEAR)
[2017-07-29 21:10] LABS: SQUAMOUS EPITHELIAL CELL,UR FEW Squamous (<= Few)
[2017-07-29 21:11] LABS: BACTERIA,URINE Rare /HPF (None Seen)
== END 2017-07-29 08:01 | disposition home or self-care (01) ==
LOC: LAB.R 08:00
PROVIDERS: ATTEND Physician Assistant
DX: R32 Unspecified urinary incontinence (principal)
CPT/HCPCS: 81001; 87086

== ENCOUNTER 2018-03-12 13:54 | Outpatient (CLI) | payer MEDICARE, OTHER ==
[2018-03-12 18:52] LABS: INR 3.8 (0.8-1.2); PT - PROTHROMBIN TIME 42.4 secs (9.9-12.6)
== END 2018-03-12 23:59 | disposition home or self-care (01) ==
LOC: LAB.WCP 13:54
PROVIDERS: ATTEND Family Medicine
DX: D68.59 Other primary thrombophilia (principal); Z79.01 Long term (current) use of anticoagulants
CPT/HCPCS: 36415; 85610